=== PATIENT | male | born 1955 | race Caucasian/White ===

== ENCOUNTER 2016-11-30 16:55 | Observation (INO) | payer OTHER ==
[~2016-11-30] VITALS: Ht 162.6 cm; Wt 68.0 kg
[2016-11-30 16:59] VITALS: BP 161/94; PULSE 60; RESP 18; O2SAT 97
--- NOTE | 2016-11-30 17:19 | ED.REPORT ---
HPI-Chest Pain 40 and Over Date of Service November 30, 2016 ED Provider: Ab Santiago MD Pt is a 60 y/o male w/ a hx of CAD and DE s/p cardiac stenting x2, HTN, hyperlipidemia, presenting to the ED c/o left-sided CP with radiation to the back onset 3 hours ago. Symptoms today are similar to his prior DE in 2007 at which time 2 stents were placed, occurred in [place]. His pain began when he was arguing with his and he rates it at 3-4/10 lasting for about 20 minutes with no radiation of pain other than to the back. He reports mild cough a few days ago. He denies SOB, CP on exertion, fever, chills, abdominal pain, nausea, vomiting. He does not have diabetes, does not smoke, and denies lower extremity swelling, long periods of immobilization. Nursing Notes Stated Complaint: CHEST AND BACK PAIN Chief Complaint: Chest Pain Nursing Notes Reviewed: Yes Allergies: Coded Allergies: lisinopril (Verified Allergy, Severe, Swelling, 11/30/16) Scheduled Alprazolam (Alprazolam) 1 Mg Tablet 1 MG PO HS Aspirin Chew (Aspirin Chew) 81 Mg Chew 81 MG PO QAM Metoprolol Tartrate (Metoprolol Tartrate) 25 Mg Tablet 25 MG PO QAM Simvastatin (Simvastatin) 40 Mg Tablet 40 MG PO HS Tramadol/Acetamin 37.5-325 mg (Tramadol/Acetamin 37.5-325 mg) 1 Each Tablet 2 TABLET PO TID General Time Seen by MD: 17:16 Chief Complaint Chest pain Hx Obtained From: Patient Arrived By: Walk-in Sudden in Onset?: Yes Onset Occurred: 1 - 4 hours ago Symptom Duration: 16 - 30 minutes Location: : Chest left Quality: Painful Radiation: : Back Severity: Current: No pain currently Severity: Maximum: Moderate Risk Factors )( PE Risk Stratification No risk factors Well's Criteria for PE Well's PE Score: 0-2 pts (low risk 3.6%) Past Medical History Past Medical History CAD s/p stenting x2 DE Hypertension Hyperlipidemia Past Surgical History Cardiac stent x2 in [place] Smoking History Unknown if Ever Smoker Social History Alcohol Use: 1-3 per week Ambulatory Status Independent Review of Systems Constitutional: Denies: Chills, Fever Respiratory: Reports: Non-productive cough, Denies: Shortness of breath Cardiovascular: Reports: Chest pain GI: Denies: Abdominal pain, Diarrhea, Nausea, Vomiting Musculoskeletal: Reports: Back pain, Denies: Extremity pain Skin: Denies Itching, Denies Rash Neurologic: Denies: Change LOC, Headache, Syncope Complete sys rev & neg: except as marked. Physical Exam Initial Vital Signs Vital Signs (First) Date Time Temp Pulse Resp B/P Pulse Ox O2 Delivery O2 Flow Rate FiO2 11/30/16 16:59 37.2 60 18 161/94 97 Room Air Initial VS: Reviewed, Vital signs abnormal Head / Eyes: Atraumatic, Normocephalic, PERRL ENT: Mucous membranes moist, Conjunctiva normal, No scleral icterus Neck: Supple, Full range of motion Extremities: Vascular intact, Neuro intact, No swelling, No tenderness Skin: Warm, Dry, No cyanosis Neurologic: Alert, Oriented, Nonfocal Psychiatric: Mood/affect normal, Behavior normal, Normal thought content General/Constitutional: Awake, Alert, No acute distress, Well appearing, Cooperative, Not toxic appearing Respiratory / Chest: Atraumatic, Breath sounds NL, Breath sounds = bilat, No respiratory distress, No rales, No rhonchi, No wheezing, No retractions, No stridor, No chest tenderness, No chest wall deformity, No crepitus Cardiovascular: Heart rate NL, Regular rhythm, Heart sounds NL, No gallop, No murmurs, No rubs, Cap refill not delayed, Peripheral circulation NL Abdomen: Atraumatic, Soft, Non-tender, No guarding, No rebound, No distention, No palpable mass Interpretation & Diagnostics Lab Results Interpretation Result Diagram: 11/30/16 1716 11/30/16 1716 Test 11/30/16 17:16 White Blood Count 5.7th/mm3 (3.8-10.1) Red Blood Count 4.90mil/mm3 (4.40-5.80) Hemoglobin 15.2g/dL (13.8-17.2) Hematocrit 44.4% (41.0-50.0) Mean Corpuscular Volume 90.6fL (81-100) Mean Corpuscular Hemoglobin 31.0pg (27.0-35.0) Mean Corpuscular Hemoglobin Concent 34.2% (32.0-37.0) Red Cell Distribution Width 12.6% (12.3-15.4) Platelet Count 264bil/L (150-400) Neutrophils (%) (Auto) 67.5% (40-74) Lymphocytes (%) (Auto) 23.5% (14-46) Monocytes (%) (Auto) 8.0% (4-12) Eosinophils (%) (Auto) 0.7% (0-5) Basophils (%) (Auto) 0.3% (0-3) Sodium Level 141mEq/L (134-144) Potassium Level 3.6mEq/L (3.5-5.2) Chloride Level 102mEq/L (97-108) Carbon Dioxide Level 23mmol/L (18-29) Blood Urea Nitrogen 16mg/dL (8-27) Creatinine 0.80mg/dL (0.76-1.27) Estimat Glomerular Filtration Rate 104mL/min (>59) Glucose Level 101mg/dL (60-99) Calcium Level 9.7mg/dL (8.5-10.1) Magnesium Level 1.8mg/dL (1.6-2.6) Total Bilirubin 0.4mg/dL (0.0-1.2) Aspartate Amino Transf (AST/SGOT) 24U/L (0-50) Alanine Aminotransferase (ALT/SGPT) 23U/L (0-44) Alkaline Phosphatase 76U/L (25-160) Troponin T < 0.010ug/L (0.0-0.011) Total Protein 7.5g/dL (6.4-8.4) Albumin 4.3g/dL (3.4-5.0) ECG Interpretation ECG Interpretation: Sinus rhythm rate 54 T wave inversions present anteroseptal leads with minimal ST depression about leads V4 and V5 Only prior EKG in chart was obtained during treadmill test dated 02/25/16 appears that anteroseptal T wave changes are new Time: 17:50 Interpreted by: ED physician Normal ECG Interpretation: Normal axis, Normal intervals X-Ray Chest Interpretation Chest Xray Interpretation: IMPRESSION: No acute process. No change in large hiatal hernia. Dictated by: Maykel Mora M.D. on 11/30/2016 at 18:30 Approved by: Maykel Mora M.D. on 11/30/2016 at 18:31 View: Portable, 1 view Interpretation / Wet Read by: Interpret - Radiologist Re-Eval/Medical Decision Med Decision/Clinical Course Pt is a 60 y/o male w/ a hx of CAD and DE s/p cardiac stenting x2, HTN, hyperlipidemia, presenting to the ED c/o left-sided CP with radiation to the back onset 3 hours ago. Symptoms today are similar to his prior DE in 2007 at which time 2 stents were placed, occurred in [place]. His pain began when he was arguing with his and he rates it at 3-4/10 lasting for about 20 minutes with no radiation of pain other than to the back. He reports mild cough a few days ago. He denies SOB, CP on exertion, fever, chills, abdominal pain, nausea, vomiting. He does not have diabetes, does not smoke, and denies lower extremity swelling, long periods of immobilization. Labs notable as below: CBC: unremarkable CMP: unremarkable Troponin negative Chest x-ray: No acute process. No change in large hiatal hernia. EKG: Sinus rhythm rate 54 T wave inversions present anteroseptal leads with minimal ST depression about leads V4 and V5 Only prior EKG in chart was obtained during treadmill test dated 02/25/16 appears that anteroseptal T wave changes are new Initial troponin is negative however his symptoms have only been present for 2- 3 hours. Here in the emergency room he is chest pain-free and we have administered 324 mg of aspirin. He reports no ongoing symptoms. EKG is concerning for new anteroseptal T wave inversions however there is no ST elevation present. Given the nature of his symptoms similarity to previous DE I am concerned for ongoing ischemic process and the patient will need to be admitted for serial troponins and an additional cardiac risk stratification. At this time his overall presentation is unconvincing for acute pulmonary embolism and he has very few risk factors for PE. He has no widened mediastinum on chest x-ray and his overall constellation of symptoms is not suggestive of aortic dissection. Patient was discussed with admitting hospitalist accepted for further management. Time of Eval: 18:51 Re-Evaluation/Progress Note: Pt rechecked. Informed pt of need for admission due to EKG changes and risk factors. Pt understands and agrees with plan for admission. All questions addressed. Consultation : Referral / Consult Name: Donna Rodriguez DO Consulted With: Hospitalist Call Returned at: 19:18 Instrument Assembly Supervisor: Will see patient, Agrees with eval, Agrees with plan, Accepts admit Counseled Regarding: Diagnosis, Lab results, Need for admission Discharge & Departure Primary Impression: Chest pain with moderate risk for cardiac etiology Additional Impressions: Abnormal EKG T wave inversion in EKG History of DE (myocardial infarction) Disposition: ADMITTED TO HOSPITAL Discharge Condition All VS Reviewed: Yes Condition: Stable Referrals: Jeanette Feliciano (PCP) Clary Attestation Portions of this note were transcribed by Sudarshan Farrell. I, Dr. Delvalle personally performed the history, physical exam and medical decision-making; I reviewed and confirmed the accuracy of the information in the transcribed note. Signed by Clary Wahsington, 11/30/16 - [id number] copies to: Jeanette Feliciano Beck O MD November 30, 2016 17:19 SUDARSHAN FARRELL November 30, 2016 17:45
[2016-11-30 17:24] LABS: BASOPHILS % (AUTO) 0.3 % (0-3); EOSINOPHILS % (AUTO) 0.7 % (0-5); Mean Corpuscular Volume 90.6 fL (81-100); NEUTROPHILS % (AUTO) 67.5 % (40-74); Platelet Count 264 bil/L (150-400)
[2016-11-30 17:48] LABS: TROPONIN T < 0.010 ug/L (0.0-0.011)
[2016-11-30 17:57] LABS: Magnesium 1.8 mg/dL (1.6-2.6)
--- NOTE | 2016-11-30 18:32 | DRSVH ---
PROCEDURE: X-RAY CHEST ONE VIEW, PORTABLE ([id number]) INDICATIONS: CHEST PAIN TECHNIQUE: One view of the chest was acquired. COMPARISON: [facility], CR, XR CHEST 2VW, 02/07/2016, 8:54. FINDINGS: Surgical changes and devices: None. Lungs and pleura: No pleural effusions or pneumothorax. Lungs are clear. Mediastinum: No change in large hiatal hernia. Mediastinal contours otherwise appear normal. Heart size is normal. Bones and chest wall: No suspicious bony lesions. Overlying soft tissues appear unremarkable. IMPRESSION: No acute process. No change in large hiatal hernia. Dictated by: Maykel Mora M.D. on 11/30/2016 at 18:30 Approved by: Maykel Mora M.D. on 11/30/2016 at 18:31
[2016-11-30] MEDS ORDERED: Alum-Mag Hydrox-Simeth 30 mL Suspension PO PRN (18:55)
[2016-11-30] MEDS ORDERED: Ondansetron 2 mg/mL 2 mL Inj IVPUSH PRN ×2 (18:55→20:20)
[2016-11-30 19:11] VITALS: BP 140/91; PULSE 57; RESP 17; O2SAT 95
[2016-11-30] MEDS ORDERED: ASPI81TA3 PO (19:29)
[2016-11-30] MEDS ORDERED: TRAM1TAB7 PO (19:29)
[2016-11-30] MEDS ORDERED: SIMV40TA5 PO (19:29)
[2016-11-30] MEDS ORDERED: ALPR1TAB7 PO (19:29)
[2016-11-30] MEDS ORDERED: METO25TA6 PO (19:29)
--- NOTE | 2016-11-30 19:50 | NUR ---
Admit PT arrived to floor via stretcher with no voiced complaints of pain or SOB; he was able to walk to the bed without difficulty. PT stated that the chest pain had started during an argument with his over her relationship with their daughter. PT settled into bed with Tele on and call manley in reach.
[2016-11-30 19:58] VITALS: BP 148/80; PULSE 59; RESP 18; O2SAT 96
[2016-11-30 20:06] VITALS: PULSE 56
--- NOTE | 2016-11-30 20:29 | PCM.HPMED ---
Subjective Date of Service November 30, 2016 Primary Provider: Admitting Physician: Donna Rodriguez DO Primary Care Physician: Jeanette Feliciano Attending Physician: Donna Rodriguez DO Admit Status: From the Emergency Department Chief Complaint: Chest pain History of Present Illness: This is a 60-year-old male with past medical history significant for hypertension, hyperlipidemia, and coronary artery disease status post stent placement who presents today for chest pain. Patient states that he was arguing with his around 4 PM this afternoon when he began to develop a substernal chest pressure. The chest pressure lasted for 40 minutes and relieved without medications. He denies any chest pressure or shortness of breath with exertion, diaphoresis, numbness or tingling extremities. He states that currently he is at his baseline and is no longer having any pain. The patient does have a history significant for a myocardial infarction in 2007 requiring 2 stents placed. He states that since this time he has had no further cardiac symptoms until today. He currently works for [employer] a large facility and walks many miles a day without symptoms of chest pain or pressure or shortness of breath. In the emergency department initial vitals were temperature 37.2 Celsius, pulse 60, respiratory rate 18, blood pressure 161/94, satting at 97% on room air. CBC and CMP within normal limits except for a glucose of 101. His troponin was less than 0.010. His EKG shows sinus rhythm with a rate of 60, left atrial enlargement, some T-wave inversion in anteroseptal leads. Chest x-ray showed no acute process and no change in large hiatal hernia. In the emergency department he was given aspirin 324 mg. He was admitted for observation. Review of Systems: A comprehensive review of systems was conducted with the patient and found to be negative except as above in the History of Present Illness. Allergies Coded Allergies: lisinopril (Verified Allergy, Severe, Swelling, 11/30/16) Home Medications Alprazolam 1 mg at night. Aspirin 81 mg daily Metoprolol titrate 25 mg in the morning Simvastatin 40 mg at night Tramadol/acetaminophen 37.5/325 mg 2 tablets by mouth 3 times a day PMH Myocardial infarction in 2007 with 2 stents placed Hyperlipidemia Hypertension Anxiety Surgical History 3 cardiac catheterizations on 2007. 2 stents placed. Family History Mother is 84 and healthy. Father's history is unknown. Brothers and sisters healthy. Social History Hx Alcohol Use: Yes (3-4/WEEK) Hx Substance Use: No Hx Tobacco Use: No Smoking Status: Former Smoker (20 pack years of smoking, quit 10-15 years ago) Exam Vital Signs Vital Sign - Last Date Time Temp Pulse Resp B/P Pulse Ox O2 Delivery O2 Flow Rate FiO2 11/30/16 20:06 56 11/30/16 19:58 36.5 18 148/80 96 Room Air Exam General: No acute distress, well-developed, well-nourished, appropriately interactive HEENT: Normocephalic, atraumatic. External ears without defect. Pupils equal, round, and reactive to light and accommodation. Anicteric sclerae, moist conjunctivae, and no lid lag. Oropharynx free of erythema and cobble stoning with moist mucosa. Neck: Supple with full range of motion. No jugular venous distension. No bruits. No lymphadenopathy or thyromegaly. Cardiovascular: Regular rate and rhythm with no murmurs, rubs, or gallops appreciated Pulmonary: Clear to auscultation bilaterally with no crackles, wheezes, or rhonchi. Normal respiratory effort with no use of accessory muscles. Abdomen: Bowel tones present. Soft, nontender, nondistended. No hepatosplenomegaly or masses appreciated. Extremities: No clubbing, cyanosis, edema, or lymphadenopathy appreciated. Skin: Normal temperature, turgor, and texture; no rash, ulcers, or subcutaneous nodules appreciated. Neurological: Cranial nerves grossly intact. Normal muscle strength, tone, and bulk. No known gait impairment. Psychiatric: Normal mood and affect. Alert and oriented to person, place, and time. Lab and Diagnostics Result Diagram: 11/30/16 1716 11/30/16 1716 X-Rays, CTs and MRIs Chest x-ray completed on 11/30/2016: IMPRESSION: No acute process. No change in large hiatal hernia. Dictated by: Maykel Mora M.D. on 11/30/2016 at 18:30 Assessment & Plan This is a 60-year-old male with past medical history significant for coronary disease with 2 stents placed in 2007 who presents for chest pressure. He was arguing with his when he developed chest pressure which relieved without medications after 40 minutes. He lives a fairly active lifestyle working as a [employer] employee and walking many miles a day. He states that before the event this evening he had not had any chest pain or pressure, shortness of breath, diaphoresis, nausea, vomiting with or without exertion. As patient describes the chest pressure as similar to his previous cardiac events this is likely cardiac in nature although anxiety can also not be ruled out. Chest pressure, present remission, resolved: -We will monitor on telemetry overnight. -We will trend troponins. hgbA1c and lipid panel pending. -Repeat CBC and CMP in the morning. -ASA given on presentation, metoprolol held given bradycardia. -Statin started -Exercise stress test ordered. Hypertension, present on admission, ongoing: -Continue home antihypertensive medications. Hyperlipidemia, present on admission, ongoing: -atorvastatin in place or simvastatin Anxiety, present on admission, ongoing: -Continue alprazolam at night. DVT prophylaxis with Lovenox Patient is admitted under observation status with expected length of stay less than 2 midnights due to severity of presenting symptoms, risk of adverse event, and complexity of treatment plan. Pain Evaluation: Adequate Pain Control GI Prophylaxis: Not indicated VTE Prophylaxis: Sub-Q Enoxaparin Resuscitation Status: CPR: Attempt Resuscitation Attending Statement The patient was seen and examined together with house staff on 11/30/2016 and I agree with the history, exam and plan as outlined in the note above. Doni Posey DO November 30, 2016 20:29 Donna Rodriguez DO December 01, 2016 00:01
[2016-12-01 05:19] VITALS: BP 108/68; PULSE 47; RESP 18; O2SAT 98
[2016-12-01 05:46] LABS: BASOPHILS % (AUTO) 0.9 % (0-3); EOSINOPHILS % (AUTO) 2.5 % (0-5); MONOCYTES % (AUTO) 11.4 % (4-12); Mean Corpuscular Hemoglobin 31.3 pg (27.0-35.0); Mean Corpuscular Volume 91.8 fL (81-100); NEUTROPHILS % (AUTO) 39.8 % (40-74); Platelet Count 226 bil/L (150-400)
[2016-12-01 06:05] LABS: TROPONIN T 0.01 ug/L (0.0-0.011)
[2016-12-01 09:20] VITALS: PULSE 50
[2016-12-01 09:30] VITALS: BP 131/73; PULSE 50; RESP 16; O2SAT 96
--- NOTE | 2016-12-01 12:12 | DRSVH ---
[facility] [address] [place] [address] Echocardiogram Report Name: BEAU IVERSON DStudy Date: 12/01/2016 Height: 64 in Hospital Exam Location: [facility] Weight: 150 lb Gender: Male BSA: 1.7 m2 : 1955 Age: 60 yrs BP: 108/68 mmHg Reason For Study: Chest Pain Performed By: Jeanette Carbone Referring Physician: ROMEO MONGE Interpretation Summary The left ventricle is normal in size. The ejection fraction is estimated to be 60-65%. The right ventricle is grossly normal size. The right ventricular systolic function is normal. No significant valvular pathology seen. There is mild luminal irregularity and echogenicity in the abdominal aorta, suggestive of aortic atherosclerotic disease. Patient was in sinus rhythm with a heart rate varying from 46-57 bpm. Procedure: A two-dimensional transthoracic echocardiogram with color flow and Doppler was performed. The study quality was technically adequate. There is no prior echocardiogram noted for this patient. Patient was in sinus rhythm with a heart rate varying from 46-57 bpm. Left Ventricle: The left ventricle is normal in size. Left ventricular wall thickness is normal. There is no thrombus. A false chord is noted (normal variant). The ejection fraction is estimated to be 60-65%. There are no focal wall motion abnormalities. Spectral Doppler of the mitral valve is reversed, with an E/A wave ratio < 1.0. Right Ventricle: The right ventricle is grossly normal size. The right ventricular systolic function is normal. Atria: Both atria are normal in size. The interatrial septum is intact with no evidence for an atrial septal defect. The thickening of interatrial septum suggests lipomatous hypertrophy. Mitral Valve: There is mild mitral annular calcification. The mitral valve leaflets are mildly calcified. Redundant elongated chordae are noted. There is trace mitral regurgitation. Aortic Valve: The aortic valve is trileaflet. The aortic valve opens well. The aortic valve is mildly calcified. There is no aortic valve stenosis. There is no aortic regurgitation. Tricuspid Valve: The tricuspid valve is not well visualized, but is grossly normal. There is trace tricuspid regurgitation. Pulmonary artery pressures cannot be estimated because of the lack of a measurable TR jet velocity. Pulmonic Valve: The pulmonic valve is not well seen, but is grossly normal. There is trace pulmonic regurgitation. Great Vessels: The aortic root is normal size. The ascending aorta is normal in size. There is mild luminal irregularity and echogenicity in the abdominal aorta, suggestive of aortic atherosclerotic disease. The IVC is of normal diameter and collapses greater than 50% with a sniff. This suggests a low right atrial pressure of 3 mm Hg. Pericardium/ Pleura There is no pericardial effusion. There is no pleural effusion. MMode/2D Measurements & Calculations LVIDd: 4.4 cm RA long axis: 4.1 cm LVOT diam LVIDs: 2.7 cm LA A2 area: 19.2 cm FS: 39.4 % LA A4 area: 20.9 cm RA area: 14.9 cm Ao root diam EPSS: 0.59 cm LA length (vol): 6.0 cm RA vol: 45.9 ml IVSd: 0.89 cm LA vol: 56.6 ml RA : 26.5 ml/m2 asc Aorta LVPWd: 0.91 cm Diam: 3.1 cm LA vol index: 32.7 ml/m2 EDV(MOD-sp2) LV greer. diameter/BSA LV sys. diameter/BSA TAPSE: 2.7 cm (cm/m^2): 2.5 (cm/m^2): 1.5 ESV(MOD-sp2) EF(MOD-sp2) Doppler Measurements & Calculations Ao V2 max: 124.8 cm/secMV E max oniel MV E/A: 0.78 PA V2 max Ao max P.2 mmHg : 70.9 cm/sec Med Peak E' Oniel : 55.2 cm/sec Ao mean P.4 mmHg MV A max oniel PA mean PG LVOT Max Oniel : 91.0 cm/sec E/E' med: 9.9 : 0.81 mmHg : 109.5 cm/sec Lat Peak E' Oniel GUSTAVO(I,D): 2.8 cm E/E' lat: 9.2 sev ratio: 0.73 E/e' average: 9.5 MV dec time: 0.23 sec Ao V2 mean LV V1 max PG PA V2 mean : 85.9 cm/sec : 42.5 cm/sec Ao V2 VTI: 30.6 cmLV V1 VTI: 22.4 cm PA pr(Accel) : 32.8 mmHg GUSTAVO(V,D): 3.4 cm2 GUSTAVO indexed to BSA (cm^2/m^2): 1.6 Reading Physician:PM
--- NOTE | 2016-12-01 13:13 | NUR ---
Stress test Patient off unit for stress test.
[2016-12-01 13:39] VITALS: BP 135/77; PULSE 54; RESP 16; O2SAT 97
--- NOTE | 2016-12-01 13:43 | NUR ---
Pt returned from stress test at 1335.
--- NOTE | 2016-12-01 14:44 | NUR ---
Social Work: Screening D: EMR reviewed. Pt is a 60 y/o male admitted for chest pain, anterior septal T wave per H&P. SW met with pt and spouse at bedside to conduct initial assessment. Pt was alert and oriented x3. SW explained role and wrote phone number on white board. Pt's primary contact is spouse Marianne Morelos ([phone]) - pt confirmed spouse can be contacted for discharge planning. Pt's insurance is [employer] and PCP is ARCHANA Arevalo. SW provided DPOA/advanced directive ppw at pt's request and encouraged pt to provide a copy to the hospital when complete. SW confirmed that pt's spouse will transport pt home via POV when pt is medically stable. SW does not anticipate any discharge needs at this time but will continue to follow EMR for needs that may arise prior to discharge. A: Pt who is independent at baseline. P: SW confirmed that pt's spouse will transport pt home via POV when pt is medically stable. SW does not anticipate any discharge needs at this time but will continue to follow EMR for needs that may arise prior to discharge. Verena Reyes MSW
--- NOTE | 2016-12-01 15:22 | DRSVH ---
PROCEDURE: 1 DAY TREADMILL STRESS TEST Rest and exercise myocardial perfusion SPECT with gated imaging and ejection fraction RADIOPHARMACEUTICAL: 8.89 mCi Tc-99m tetrafosmin IV at rest and 25.1 mCi Tc-99m tetrafosmin IV at pea k exercise. [id number] was performed. INDICATIONS: CHEST PAIN TECHNIQUE: Radiopharmaceutical was injected at peak stress test, and also at rest. SPECT images wer e obtained. SPECT myocardial perfusion images were displayed in short axis, horizontal long axis, an d vertical long axis views. Gated images were reviewed using Auto[employer] software. COMPARISON: None. CARDIAC STRESS: A standard Kenneth treadmill exercise tolerance test was performed by the patient under the supervision of an attending staff. The patient exercised for 9 minutes and 38 seconds; functional aerobic impai rment (NGUYEN) is -19 %. Hemodynamic data: There is normal blood pressure and heart rate response to exercise stress. Patien t achieved 85% of maximum predicted heart rate at peak exercise. Symptoms: Patient denied chest pain during exercise. EKG: No diagnostic EKG changes of ischemia; no ectopy. FINDINGS: Raw data: There is good myocardial labeling by radiotracer. No significant motion artifacts. Left ventricle function: Gated images demonstrate normal left ventricle wall thickening. No segment al wall motion abnormality. The left ventricle resting end-diastolic volume is 62 mL. Left ventricl e stress ejection fraction is 83%; normal values are above 45%. Myocardial perfusion: There is a small to moderate perfusion defect involving the proximal anterior and lateral wall. The defect persist between supine rest and stress images. However prone imaging the defect improves. IMPRESSION: This is probably normal myocardial perfusion study. There is a small perfusion defect not ed along the proximal anterolateral wall predominantly fixed. However on prone imaging the defect merrill s improve and there is normal LV wall motion which would indicate that defect is an artifact. Ejectio n fraction is normal and stress EKG is low risk. Patient denied any chest pain during the treadmill s tudy. Patient's exercise capacity as above average. Dictated by: Mushtaq Willoughby Jr., M.D. on 12/01/2016 at 15:17 Approved by: Mushtaq Willoughby Jr., M.D. on 12/01/2016 at 15:20
--- NOTE | 2016-12-01 15:35 | PCM.DIMED ---
Discharge Instructions Date of Service December 01, 2016 Dates of Hospitalization November 30, 2016 at 19:22 Discharge Diagnosis Discharge Diagnosis # Acute chest pain, present remission. Resolved. - Unclear etiology but ruled out for acute myocardial infarction and with negative cardiac workup including unremarkable stress test and echocardiogram # Chronic hypertension. Stable and well controlled during this hospital. Medication Instructions Additional med instructions Resume home medications as before Diet Discharge Diet: Low fat, Low Sodium, Heart Healthy Activity Discharge Activity: No restrictions Call your provider Call your provider for: Fever or Chills, Shortness of breath, Bleeding, Chest pain Patient Instructions Patient Instructions Seek immediate medical attention if any new or worsening signs or symptoms occur. Follow-up plan 1. Followup with primary care provider in 1-2 weeks Follow-up Provider: Jeanette Feliciano Masoud December 01, 2016 15:35
--- NOTE | 2016-12-01 15:40 | NUR ---
per Dex Castillo silvio 51 Addendum: 12/01/16 at 1541 by MICHAEL HUBER RN Amended: Links added.
--- NOTE | 2016-12-01 16:01 | PCM.DC.MED ---
Discharge Summary Date of Service December 01, 2016 Dates of Hospitalization Date of Hospital Admission November 30, 2016 at 19:22 Date of Discharge: December 01, 2016 Providers: Admitting Physician: Donna Rodriguez DO Primary Care Physician: Jeanette Feliciano Attending Physician: Donna Rodriguez DO Diagnosis at Time of Discharge Diagnosis at Time of Discharge # Acute chest pain, present remission. Resolved. - Unclear etiology but ruled out for acute myocardial infarction and with negative cardiac workup including unremarkable stress test and echocardiogram # Chronic hypertension. Stable and well controlled during this hospital. Procedures XRay, CTs & MRIs Chest x-ray completed on 11/30/2016: IMPRESSION: No acute process. No change in large hiatal hernia. Dictated by: Maykel Mora M.D. on 11/30/2016 at 18:30 Cardiac Echo Impression Date of Service: 12/01/16 0816 Echocardiogram Report Interpretation Summary The left ventricle is normal in size. The ejection fraction is estimated to be 60-65%. The right ventricle is grossly normal size. The right ventricular systolic function is normal. No significant valvular pathology seen. There is mild luminal irregularity and echogenicity in the abdominal aorta, suggestive of aortic atherosclerotic disease. Patient was in sinus rhythm with a heart rate varying from 46-57 bpm. Reading Physician:PM Other Diagnostics Date of Service: 12/01/16 0758 PROCEDURE: 1 DAY TREADMILL STRESS TEST Rest and exercise myocardial perfusion SPECT with gated imaging and ejection fraction IMPRESSION: This is probably normal myocardial perfusion study. There is a small perfusion defect noted along the proximal anterolateral wall predominantly fixed. However on prone imaging the defect does improve and there is normal LV wall motion which would indicate that defect is an artifact. Ejection fraction is normal and stress EKG is low risk. Patient denied any chest pain during the treadmill study. Patient's exercise capacity as above average. Dictated by: Mushtaq Willoughby Jr., M.D. on 12/01/2016 at 15:17 Approved by: Mushtaq Willoughby Jr., M.D. on 12/01/2016 at 15:20 Brief History As noted in H&P by Dr. Posey: This is a 60-year-old male with past medical history significant for hypertension, hyperlipidemia, and coronary artery disease status post stent placement who presents today for chest pain. Patient states that he was arguing with his around 4 PM this afternoon when he began to develop a substernal chest pressure. The chest pressure lasted for 40 minutes and relieved without medications. He denies any chest pressure or shortness of breath with exertion, diaphoresis, numbness or tingling extremities. He states that currently he is at his baseline and is no longer having any pain. The patient does have a history significant for a myocardial infarction in 2007 requiring 2 stents placed. He states that since this time he has had no further cardiac symptoms until today. He currently works for [employer] a large facility and walks many miles a day without symptoms of chest pain or pressure or shortness of breath. In the emergency department initial vitals were temperature 37.2 Celsius, pulse 60, respiratory rate 18, blood pressure 161/94, satting at 97% on room air. CBC and CMP within normal limits except for a glucose of 101. His troponin was less than 0.010. His EKG shows sinus rhythm with a rate of 60, left atrial enlargement, some T-wave inversion in anteroseptal leads. Chest x-ray showed no acute process and no change in large hiatal hernia. In the emergency department he was given aspirin 324 mg. He was admitted for observation. Hospital Course # Chest pain, present prior to admission, resolved - Remained chest pain free and asymptomatic throughout this hospital - Ruled out for ND with negative Trops - Echo and Stress test negative as noted above # Hypertension, present on admission. Stable. -Continue home antihypertensive medications. # Hyperlipidemia, present on admission. stable. - Continue with home dose statin Exam Vital Signs (Last) Date Time Temp Pulse Resp B/P Pulse Ox O2 Delivery O2 Flow Rate FiO2 12/01/16 13:39 36.3 54 16 135/77 97 12/01/16 05:19 Room Air Exam Lungs: CTA bilat CV: RRR Abd: Soft, nt, nd, +bs Test 5/29/17 17:16 12/01/16 05:07 12/01/16 05:10 Magnesium Level 1.8mg/dL (1.6-2.6) White Blood Count 3.2th/mm3 (3.8-10.1) Red Blood Count 4.41mil/mm3 (4.40-5.80) Hemoglobin 13.8g/dL (13.8-17.2) Hematocrit 40.5% (41.0-50.0) Mean Corpuscular Volume 91.8fL (81-100) Mean Corpuscular Hemoglobin 31.3pg (27.0-35.0) Mean Corpuscular Hemoglobin Concent 34.1% (32.0-37.0) Red Cell Distribution Width 12.6% (12.3-15.4) Platelet Count 226bil/L (150-400) Neutrophils (%) (Auto) 39.8% (40-74) Lymphocytes (%) (Auto) 45.1% (14-46) Monocytes (%) (Auto) 11.4% (4-12) Eosinophils (%) (Auto) 2.5% (0-5) Basophils (%) (Auto) 0.9% (0-3) Sodium Level 143mEq/L (134-144) Potassium Level 4.0mEq/L (3.5-5.2) Chloride Level 106mEq/L (97-108) Carbon Dioxide Level 22mmol/L (18-29) Blood Urea Nitrogen 18mg/dL (8-27) Creatinine 0.72mg/dL (0.76-1.27) Estimat Glomerular Filtration Rate 118mL/min (>59) Glucose Level 107mg/dL (60-99) Calcium Level 8.8mg/dL (8.5-10.1) Total Bilirubin 0.5mg/dL (0.0-1.2) Aspartate Amino Transf (AST/SGOT) 21U/L (0-50) Alanine Aminotransferase (ALT/SGPT) 20U/L (0-44) Alkaline Phosphatase 62U/L (25-160) Troponin T 0.010ug/L (0.0-0.011) Total Protein 5.9g/dL (6.4-8.4) Albumin 3.7g/dL (3.4-5.0) Triglycerides Level 105mg/dL (0-149) Cholesterol Level 177mg/dL (100-199) LDL Cholesterol, Calculated 90.000mg/dL (0-99) VLDL Cholesterol 21.000mg/dL HDL Cholesterol 66mg/dL (>39) Cholesterol/HDL Ratio 2.68 (0.0-4.4) Discharge Medications Discharge Medications Alprazolam (Alprazolam) 1 Mg Tablet 1 MG PO HS (Reported) Aspirin Chew (Aspirin Chew) 81 Mg Chew 81 MG PO QAM (Reported) Metoprolol Tartrate (Metoprolol Tartrate) 25 Mg Tablet 25 MG PO QAM (Reported) Simvastatin (Simvastatin) 40 Mg Tablet 40 MG PO HS (Reported) Tramadol/Acetamin 37.5-325 mg (Tramadol/Acetamin 37.5-325 mg) 1 Each Tablet 2 TABLET PO TID (Reported) Additional med instructions Resume home medications as before Followup Plan Disposition: Home Follow-up plan 1. Followup with primary care provider in 1-2 weeks Discharge Diet: Low fat, Low Sodium, Heart Healthy Discharge Activity: No restrictions Patient Instructions Seek immediate medical attention if any new or worsening signs or symptoms occur. patient expresses clear verbal understanding of noted assessment, plan, and recommendations and agrees Follow-up Provider: Jeanette Feliciano Time spent 30 min copies to: Jeanette Feliciano Masoud December 01, 2016 16:01
--- NOTE | 2016-12-01 16:13 | NUR ---
Discharge New orders for discharge home for patient . Reviewed discharge paper work, discharge instructions, and continued home medications,written care notes provided. patient understood discharge instructions and medications, signed discharge paper work. patient walked and accompained by advanced nursing professor approx [phone]. Denied pain or discomfort prior to discharge. Peripheral IV discontinued left arm with out any difficulty or pain.
--- NOTE | 2016-12-01 16:26 | NUR ---
Social Work: Discharge D: EMR reviewed. Pt is [facility] day 1. A: Pt who is independent at baseline. P: SW confirmed that pt's spouse will transport pt home via POV when pt is medically stable. SW does not anticipate any discharge needs at this time but will continue to follow EMR for needs that may arise prior to discharge. MARIAN Beltrán
== END 2016-12-01 16:15 | disposition home or self-care (01) ==
LOC: SED 16:55 → MPC 19:22
PROVIDERS: ADMIT Internal Medicine; ATTEND Internal Medicine
DX: R07.9 Chest pain, unspecified (principal); I10 Essential (primary) hypertension; E78.5 Hyperlipidemia, unspecified; F41.9 Anxiety disorder, unspecified; I25.10 Atherosclerotic heart disease of native coronary artery without angina pectoris; R94.31 Abnormal electrocardiogram [ECG] [EKG]; I25.2 Old myocardial infarction; Z88.8 Allergy status to other drugs, medicaments and biological substances; Z79.82 Long term (current) use of aspirin; Z95.5 Presence of coronary angioplasty implant and graft
CPT/HCPCS: 36415; 71010; 78452; 80053; 80061; 83036; 83735; 84484; 85025; 93005; 93017; 99285; A9502; C8929; G0378; J1650